=== PATIENT | female | born 1970 | race Caucasian/White ===

== ENCOUNTER 2017-07-12 16:33 | Emergency (ER) | payer BC, OTHER ==
[2017-07-12] MEDS ORDERED: BACITRACIN 500 U/GM OIN TOP ONE ×3 (17:05→17:55)
[2017-07-12 17:29] VITALS: TEMP 98
[2017-07-12] MEDS ORDERED: KETOROLAC TROMETHAMINE 30 MG/ML SOL IM ONE (17:33)
[2017-07-12] MEDS ORDERED: KETOROLAC TROMETHAMINE 30 MG/ML SOL ONE (17:38)
[2017-07-12 18:11] VITALS: BP 108/82; PULSE 72; RESP 16; O2SAT 100
== END 2017-07-12 18:25 | disposition home or self-care (01) | DRG 552 ==
LOC: ED 16:33
DX: S13.4XXA Sprain of ligaments of cervical spine, initial encounter (principal); S46.811A Strain of other muscles, fascia and tendons at shoulder and upper arm level, right arm, initial encounter; S30.0XXA Contusion of lower back and pelvis, initial encounter; S50.812A Abrasion of left forearm, initial encounter; W18.49XA Other slipping, tripping and stumbling without falling, initial encounter; Y92.830 Public park as the place of occurrence of the external cause
CPT/HCPCS: 72125; 73501; 99284; J1885